=== PATIENT | female | born 1990 | race Caucasian/White ===

== ENCOUNTER 2017-10-25 11:21 | Emergency (ER) | payer SELFPAY ==
[~2017-10-25] VITALS: Ht 170.2 cm; Wt 64.0 kg
[~2017-10-25 11:21] MED LIST: IBUP800T23 PO; METH750T2 PO
[2017-10-25 11:22] VITALS: BP 123/59; PULSE 65; RESP 16; TEMP 98; O2SAT 100
--- NOTE | 2017-10-25 11:33 | PD ---
HPI Chief Complaint: Medication Refill Request Time Seen by Provider: 11:31 Travel History International Travel<30 days: No Contact w/Intl Traveler<30days: No Traveled to known affect area: No History of Present Illness HPI 26-year-old female presents to the emergency department requesting a prescription for Plan B. She states she went to get it from the pharmacy, but it cost $60, so she came to the emergency department for a prescription. The patient denies any symptoms or complaints at this time. She states she has a 9 week baby at home and had unprotected sex last night so she would like Plan B. Mild severity. History Social History Alcohol Use: No Tobacco Use: Yes Allergies-Medications (Allergen,Severity, Reaction): Coded Allergies: amoxicillin (Unverified Allergy, Severe, Hives, 10/25/17) penicillin G (Unverified Allergy, Severe, Hives, 10/25/17) Reported Meds & Prescriptions Reported Meds & Active Scripts Active Review of Systems Except as stated in HPI: all other systems reviewed are Neg Physical Exam Narrative GENERAL: Well-nourished, well-developed female patient, ambulatory. Afebrile. SKIN: Focused skin assessment warm/dry. HEAD: Normocephalic. Atraumatic. EYES: No scleral icterus. No injection or drainage. NECK: Supple, trachea midline. No JVD or lymphadenopathy. CARDIOVASCULAR: Regular rate and rhythm without murmurs, gallops, or rubs. RESPIRATORY: Breath sounds equal bilaterally. No accessory muscle use. Lung sounds are clear to auscultation. GASTROINTESTINAL: Abdomen soft, non-tender, nondistended. MUSCULOSKELETAL: No cyanosis, or edema. Data Data Last Documented VS Vital Signs Date Time Temp Pulse Resp B/P (MAP) Pulse Ox O2 Delivery O2 Flow Rate FiO2 10/25/17 11:22 98.0 65 16 123/59 (80) 100 MDM Medical Screen Exam Complete: Yes Emergency Medical Condition: No Narrative Course 26-year-old female presents to the emergency department requesting a prescription for Plan B. She states it cost too much to get [id number] so she needs a prescription. She has no emergent complaints at this time. A medical screening exam was performed: At the time of evaluation the presenting medical condition was determined not to be of an emergent nature. The patient was given the option of receiving additional care, but declined. Patient was given options for additional community resources from which to obtain care. The Patient Has Been advised to seek medical attention for their presenting complaint. The patient has been advised to return to the ER at any time if an emergent condition develops. Primary Impression: Encounter for medical screening examination Condition: Frida Castellon Oct 25, 2017 11:33
== END 2017-10-25 11:51 | disposition left against medical advice (07) ==
LOC: NEPD 11:21
DX: Z76.0 Encounter for issue of repeat prescription (principal)
CPT/HCPCS: 99281